=== PATIENT | female | born 1990 | race African-American/Black ===

== ENCOUNTER 2019-02-28 21:33 | Emergency (ER) | payer SELFPAY ==
[~2019-02-28] VITALS: Ht 165.1 cm; Wt 74.8 kg
--- NOTE | 2019-02-28 21:33 | NUR ---
PT BIBSELF COMPLAINING OF SOB, ALLERGIC REACTION. PT STATES "SWELLING OF TONGUE, AND THROAT." SWELLING OF BILATERAL EYES, LIPS, AND TONGUE NOTED. PT RESPIRATIONS LABORED, AND SPEAKING IN 2-3 WORD SENTENCES. PT PUT ON THE PROCEDURE ANALYST AND PULSE OX.
--- NOTE | 2019-02-28 21:40 | NUR ---
SERGE[facility] VILA AT [facility].
[2019-02-28] MEDS ORDERED: methylPREDNISolone SOD SUCC 125 MG/2ML VIAL ONE (21:46)
[2019-02-28] MEDS ORDERED: EPINEPHRINE (1:1000) 1 MG/ML AMPUL ONE (21:46)
[2019-02-28] MEDS ORDERED: FAMOTIDINE/PF INJ 20 MG/2 ML VIAL IV ONE ×2 (21:48→22:00)
[2019-02-28] MEDS ORDERED: methylPREDNISolone SOD SUCC 125 MG/2ML VIAL IV ONE (22:00)
[2019-02-28] MEDS ORDERED: EPINEPHRINE (1:1000) MDV 30 MG/30ML VIAL SUBCUT ONE (22:00)
--- NOTE | 2019-02-28 22:00 | NUR ---
PT RESTING IN BED, STATES "TONGUE FEELS BETTER." PT SWELLING IN TONGUE, EYES, AND LIPS DECREASED.
--- NOTE | 2019-02-28 22:20 | NUR ---
SWELLING OF EYES, LIPS, TONGUE DECREASED. PT STATES SHE, "FEELS BETTER."
[2019-02-28 22:40] VITALS: BP 118/66
--- NOTE | 2019-02-28 22:40 | NUR ---
Patient discharged to home in stable condition. Written and verbal after care instructions given. Patient verbalizes understanding of instruction. IV removed. Catheter intact and site benign. Pressure and 4x4 applied to site. No bleeding noted.
== END 2019-02-28 22:43 | disposition home or self-care (01) ==
LOC: ER 21:38
DX: L50.0 Allergic urticaria (principal)
CPT/HCPCS: 96374; 96375; 99283; J0171 ×2; J2930; J3490